=== PATIENT | female | born 1985 | race Hispanic/Latino ===

== ENCOUNTER 2016-10-27 13:50 | Emergency (ER) ==
[~2016-10-27 13:50] MED LIST: ISOVUE-370 76%-LOCM 1 ML ONE
[2016-10-27] MEDS ORDERED: Acetaminophen 500 MG TAB ONE (15:31)
[2016-10-27 15:58] LABS: Bilirubin Negative (Negative); Blood, Urine Small (Negative); Glucose, Urine (Dipstick) Negative (Negative); Ketone, Urine Negative (Negative); Nitrite Negative (Negative); Protein, Urine (Dipstick) 30 mg/dL (Neg-Trace)
[2016-10-27 15:59] LABS: Bacteria/HPF 2+ HPF (None Seen); Hyaline Casts/LPF 0-3 HYALINE CAST LPF (0-3 Hyaline); WBC/HPF 21-50 HPF (0-3)
--- NOTE | 2016-10-27 16:00 | RAD ---
LEFT SHOULDER THREE VIEWS: HISTORY: Left shoulder pain. FINDINGS: No fracture, dislocation, or bony destruction is identified. POS: [facility]
--- NOTE | 2016-10-27 16:06 | RAD ---
PORTABLE CHEST ONE VIEW: 10/27/2016 3:40 p.m. HISTORY: Chest pain. FINDINGS: The heart size is prominent, likely due to magnification. The lungs are well expanded without focal areas of consolidation, pneumothorax, francisca pulmonary edema, or pleural effusions. POS: [facility]
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
[2016-10-27 17:07] LABS: #Eosinphils 0.1 thou/uL (0.0-0.7); #Monocytes 0.6 thou/uL (0.11-0.59); #Neutrophils 8.3 thou/uL (1.40-6.50); %Basophils 0.2 % (0.0-1.0); %Eosinophils 0.5 % (0.0-10.0); %Lymphocytes 18.4 % (21.0-51.0); %Monocytes 5.5 % (0.0-10.0); Hematocrit 44.4 % (36.0-47.0); Mean Platelet Volume 8.9 fL (7.4-10.4)
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
[2016-10-27 17:53] LABS: ALT (SGPT) 28 U/L (8-55); AST (SGOT) 24 U/L (5-34); Alkaline Phosphatase 79 U/L (40-150); Anion Gap 16 mmol/L (10-20); BUN (Urea Nitrogen) 10 mg/dL (7.0-18.7); Calc. Creatinine Clearance 0 mL/min (70-130); Calcium 9.1 mg/dL (7.8-10.44); Carbon Dioxide 22 mmol/L (22-29); Chloride 105 mmol/L (98-107); Estimated GFR-MDRD Greater than 90; Globulin 3.5 g/dL (2.4-3.5); Protein, Total 7.7 g/dL (6.0-8.3)
== END 2016-10-27 19:07 | disposition home or self-care (01) ==
LOC: ERS 13:50
DX: S30.1XXA Contusion of abdominal wall, initial encounter (principal); S20.219A Contusion of unspecified front wall of thorax, initial encounter; V43.52XA Car driver injured in collision with other type car in traffic accident, initial encounter; W22.11XA Striking against or struck by driver side automobile airbag, initial encounter
CPT/HCPCS: 71010; 72170; 74177; 80053; 81003; 81015; 81025; 85025; 93005

== ENCOUNTER 2018-08-10 15:43 | Emergency (ER) | payer SELFPAY | END 2018-08-10 16:03 | disposition home or self-care (01) | LOC: SCSER 15:43 | DX: L01.00 Impetigo, unspecified (principal) | CPT/HCPCS: 99282 ==

== ENCOUNTER 2021-04-21 14:41 | Outpatient (CLI) | payer MEDICAID | END 2021-04-21 14:42 | disposition home or self-care (01) | LOC: ULT 14:41 → EDSTATUS 15:00 | PROVIDERS: ATTEND Family Medicine | DX: N92.1 Excessive and frequent menstruation with irregular cycle (principal); R10.2 Pelvic and perineal pain | CPT/HCPCS: 76856 ==